=== PATIENT | male | born 1965 | race Two or more races ===

== ENCOUNTER 2020-12-16 21:51 | Emergency (ER) | payer MEDICAID, OTHER ==
[~2020-12-16] VITALS: Ht 180.3 cm; Wt 80.3 kg
--- NOTE | 2020-12-16 22:10 | NUR ---
PT WAS BIBRA FOR C/O SI. NO SPECIFIC PLAN REPORTED , PT IS REQUESTING VOLUNTARY PSYCH ADMISSION TO [facility]. PT AMBULATORY W/ STEADY GAITS. REFUSED TO PROVIDE URINE SAMPLE AT THIS TIME. PT WAS PLACED ON SI PRECAUTIONS. VSS. WILL CONT TO MONITOR
[2020-12-17 00:34] LABS: BASOPHILS % (AUTO) 0.2 % (0.0-2.0); EOSINOPHILS % (AUTO) 1.4 % (0.0-6.0); HEMATOCRIT 40 % (39-51); HEMOGLOBIN 13.6 g/dL (13.5-17.5); LYMPHOCYTES % (AUTO) 50.5 % (20.0-44.0); MEAN CORPUSCULAR HGB CONC 34 g/dl (31.0-36.0); MEAN CORPUSCULAR VOLUME 99 fL (80-96); MONOCYTES # (AUTO) 0.8 /CMM (0.1-1.30); NEUTROPHILS # (AUTO) 2.1 /CMM (1.8-8.9); NEUTROPHILS % (AUTO) 34.9 % (43.0-81.0); PLATELET COUNT (AUTO) 205 /CMM (150-450); RED BLOOD CELL COUNT(AUTO) 4.09 MIL/uL (4.5-6.0)
[2020-12-17 00:48] LABS: CARBON DIOXIDE 27 mmol/L (21-32); CHLORIDE 101 mmol/L (98-107); CREATININE 1.2 mg/dL (0.6-1.3); GLUCOSE 118 mg/dL (74-106); POTASSIUM 4.2 mmol/L (3.5-5.1); SODIUM SERUM 136 mmol/L (136-145); UREA NITROGEN, BLOOD 24 mg/dL (7-18)
[2020-12-17 00:54] LABS: ALANINE AMINOTRANSFERASE 117 U/L (12-78); ALBUMIN 4.2 g/dL (3.4-5.0); ALCOHOL, BLOOD < 3 mg/dL (0-0); ALKALINE PHOSPHATASE 68 U/L (46-116); ASPARTATE AMINOTRANSFERASE 87 U/L (15-37); BILIRUBIN,DIRECT 0.2 mg/dL (0.0-0.2); BILIRUBIN,TOTAL 0.8 mg/dL (0.2-1.0); TOTAL PROTEIN, SERUM 9.8 g/dL (6.4-8.2)
[2020-12-17 00:55] LABS: ACETAMINOPHEN < 2 ug/ml (10-30)
--- NOTE | 2020-12-17 03:20 | NUR ---
MAYA PIKE COLLECTED AND SENT TO LAB
[2020-12-17 04:18] LABS: BILIRUBIN,URINE MODERATE (NEGATIVE); COLOR,URINE YELLOW (YELLOW); LEUKOCYTE ESTERASE ,URINE NEGATIVE (NEGATIVE); NITRITE, URINE NEGATIVE (NEGATIVE); PH,URINE 5.5 (5.0-8.0); PROTEIN,URINE 30 mg/dl (NEGATIVE); UGLUCOSE NEGATIVE (NEGATIVE)
[2020-12-17 05:14] LABS: BACTERIA,URINE Few /HPF (None Seen); MUCUS,URINE Many /LPF (None Seen); RBC,URINE 0-2 /HPF (0-2); SQUAMOUS EPITHELIAL CELL,UR Few /HPF (None Seen); WBC,URINE 21-50 /HPF (0-3)
[2020-12-17] MEDS ORDERED: CEPH500C2 PO (06:36)
[2020-12-17] MEDS ORDERED: CEPHALEXIN MONOHYDRATE 500 MG CAPSULE PO ONE ×2 (06:37→07:00)
--- NOTE | 2020-12-17 07:45 | NUR ---
ASSESSED PT ON BED AWAKE AND ALERT NOT IN RESPIRATORY DISTRESS, V/S STABLE, KEPT RESTED AND COMFORTABLE. BREAKFAST TRAY PROVIDED. WILL CONTINUE TO MONITOR.
--- NOTE | 2020-12-17 10:02 | NUR ---
FAXED FACE SHEET TO [facility]
--- NOTE | 2020-12-17 10:31 | NUR ---
[facility] patient is accepted at [facility] under Dr. Benítez, going to unit 1. transfer patient after 11am.
--- NOTE | 2020-12-17 10:37 | NUR ---
CALLED TRANSPORT [facility] ETA 30 MINS.
[2020-12-17 11:12] VITALS: BP 129/72
--- NOTE | 2020-12-17 11:12 | NUR ---
REPORT GIVEN [facility]
== END 2020-12-17 11:19 ==
LOC: ER 21:54
DX: R45.851 Suicidal ideations (principal); Z59.0 Homelessness; R82.81 Pyuria; Z20.822 Contact with and (suspected) exposure to COVID-19; F43.10 Post-traumatic stress disorder, unspecified; F15.90 Other stimulant use, unspecified, uncomplicated; F32.9 Major depressive disorder, single episode, unspecified; F20.9 Schizophrenia, unspecified
CPT/HCPCS: 36415; 80048; 80076; 80299; 80307; 80320; 81001; 85025; 87086; 87426; 99285; C9803; G0480